=== PATIENT | male | born 1970 | race Caucasian/White ===

== ENCOUNTER → 2017-11-02 10:15 | Outpatient (CLI) | payer BC ==
[2014-10-22 12:45] VITALS: BMI 32.1
== END | disposition home or self-care (01) ==
LOC: D.MRI 10:15
DX: M50.123 Cervical disc disorder at C6-C7 level with radiculopathy (principal)

== ENCOUNTER → 2018-01-17 07:47 | Outpatient (CLI) | payer BC ==
[2014-10-22 12:45] VITALS: BMI 32.1
== END | disposition home or self-care (01) ==
LOC: D.MRI 07:47
DX: M54.12 Radiculopathy, cervical region (principal)

== ENCOUNTER 2018-02-11 10:51 | Day surgery (SDC) | payer BC ==
[~2018-02-11] VITALS: Ht 188 cm; Wt 111.4 kg
[2018-02-11] VITALS (7 sets, daily range): BP systolic 120–146; BP diastolic 75–87; BMI 32.8
--- NOTE | ~2018-02-11 | OP ---
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 PROCEDURE: Anterior cervical discectomy and fusion at C6-C7 with Zavation plate and screws, Qing bone allograft stem cells, PEEK interbody cage at C5-C6 and Mobi-C artificial cervical disc from [facility]. SURGEON: Radhames Alejandra MD PRIMARY CARE PHYSICIAN: Dr. Gutierrez in [place], [place]. DESCRIPTION OF TECHNIQUE: After induction of general endotracheal anesthesia, the patient was positioned supine on the operating table in a neutral position of the cervical spine. After sterile prep and drape, a transverse skin incision was carried out from the midline to the sternocleidomastoid at approximately the level of the C6 vertebral body. The platysma was divided with Bovie cautery. Then, using blunt and sharp dissection with Metzenbaum scissors, I proceeded in avascular plane medial to the carotid sheath. The C5-C6 and C6-C7 interspaces were confirmed with fluoroscopic x-ray and spinal needle. The C6-C7 interspace could not be visualized on lateral cervical spine; therefore, it was elected to perform a fusion at this level rather than the artificial cervical disc. After exposure of vertebral bodies of C6 and C7, the self-retaining retractor was placed deep to the longus colli muscles. Evergreen distracting pins were placed in the bodies of C6 and C7. Disk space was distracted and the disc space was incised with #11 blade. Series of pituitary rongeurs and curettes were used to remove disc material at C6-C7. Next, the posterior longitudinal ligament was removed with Cloward rongeurs and in the process of removing this, there was a disc material within the neural foraminal at C6-C7 on the left, which was removed as well as the central canal. Next, a PEEK interbody cage was placed into the disc space under distraction. Prior to this, it was filled with Qing Bone was bone stem cell allograft. Next, a Zavation anterior cervical plate and screws was used to span the C6-C7 interspace. Locking cams were tightened down the screw heads. Good position of the hardware was confirmed with fluoroscopic x-ray. Next, attention was turned to the C5-C6 interspace. Longus colli muscles were elevated from both the bodies of C5 and C6. Disk space was distracted using Evergreen distracting pins. The endplates were prepared with curettes and then the posterior longitudinal ligament was removed with Cloward rongeurs. There was additional disc material attached along the posterior longitudinal ligament, which was removed with curettes and upgoing curettes, which were posterior to the vertebral body. Following this, the dura was decompressed well and appropriate size Mobi-C artificial cervical disc was placed in the disc space under distraction. The Evergreen pins were relaxed and good position of the hardware was confirmed with AP and lateral fluoroscopic x-ray. Meticulous hemostasis was maintained throughout the wound. The wound was irrigated with copious amounts of Ancef irrigant solution. The platysma and subdermal layer closed with interrupted 3-0 Vicryl suture. The skin was OPERATIVE REPORT [id number] REED HUTSON reapproximated with Steri-Strips and benzoin. A sterile dressing was applied to the wound. The patient was awakened in good condition and taken to recovery. All counts were reported as correct. Estimated blood loss was minimal. TRANSINT:[id number] Voice Confirmation ID: [id number] DOCUMENT ID: [id number] RADHAMES ALEJANDRA MD at 0852 CC: [id number] DICTATION DATE: 02/15/18905 FARE ENFORCEMENT OFFICER: 02/15/18 1117 [facility] 02/12/18 [place] [id number] [place] [id number]
[2018-02-11] MEDS ORDERED: ZYRTEC10 MG PO (11:24)
[2018-02-11] MEDS ORDERED: STERAPRED 5MG 125 MG PO (11:25)
[2018-02-11] MEDS ORDERED: OXYCODONE-APAP1 TAB PO (11:25)
[2018-02-12] VITALS (9 sets, daily range): BP systolic 108–128; BP diastolic 67–82; Ht 188 cm; Wt 111.4 kg
== END 2018-02-12 11:30 | disposition home or self-care (01) ==
LOC: D.ICU 10:51 → D.OPS 10:51 → D.PAN 12:00 → D.OPS 12:00 → D.PAN 13:15 → D.OPS 13:15 → D.ICU 20:32 → D.OPS 02-12 11:30
DX: M50.123 Cervical disc disorder at C6-C7 level with radiculopathy (principal); Z01.812 Encounter for preprocedural laboratory examination

== ENCOUNTER → 2018-08-31 11:55 | Outpatient (CLI) | payer BC ==
[2018-02-12 14:14] VITALS: BMI 31.5
[~2018-08-31 11:55] MED LIST: OXYCODONE-APAP1 TAB PO; STERAPRED 5MG 125 MG PO; ZYRTEC10 MG PO
[2018-08-31 12:58] LABS: ALBUMIN 3.8 g/dL (3.4-5.0); ALKALINE PHOSPHATASE 60 U/L (46-116); ALT (SGPT) 34 U/L (10-68); BILIRUBIN - TOTAL 0.96 mg/dL (0.2-1.3); C-REACTIVE PROTEIN 1.1 mg/dL (0.0-0.9); CALC OSMOLALITY 279 mosm/kg (275-300); CALCIUM 9.1 mg/dL (8.5-10.1); CARBON DIOXIDE 27.4 mmol/L (21.0-32.0); CHLORIDE - SERUM 104 mmol/L (98-107); GLUCOSE 96 mg/dL (74-106); POTASSIUM - SERUM 4.1 mmol/L (3.5-5.1); PROTEIN - SERUM 6.6 g/dL (6.4-8.2); SODIUM 139 mmol/L (136-145); UREA NITROGEN 17 mg/dL (7-18); URIC ACID 5.9 mg/dL (2.6-7.2); eGFR NON AFRICAN AMERICAN 84 mL/min (90-120)
[2018-08-31 13:51] LABS: ERYTHROCYTE SEDIMENTATION RATE 2 mm/hr (0-20)
[2018-08-31 13:57] LABS: BASOPHILS 0.3 % (0-2); EOSINOPHILS 1.4 % (0-7); HEMATOCRIT 47.9 % (42.0-54.0); HEMOGLOBIN 16.9 g/dL (13.5-17.5); IMMATURE GRANULOCYTES 0.3 % (0-5); LYMPHOCYTES 20.1 % (15-50); MCH 31.6 pg (26.0-34.0); MCHC 35.3 g/dL (31.0-37.0); MCV 89.7 fL (80.0-100.0); MEAN PLATELET VOLUME 10.1 fL (7.4-10.4); MONOCYTES 7.6 % (2-11); NEUTROPHILS 70.3 % (40-80); PLATELET COUNT 287 10x3/uL (130-400); RBC 5.34 10x6/uL (4.20-6.10); RDW 13.4 % (11.5-14.5); WBC 7.1 10x3/uL (4.8-10.8)
[2018-09-02 16:08] LABS: ANA REFLEX - DIRECT Negative (Negative)
== END | disposition home or self-care (01) ==
LOC: D.LAB 11:55
PROVIDERS: ATTEND Orthopaedic Surgery
DX: M35.3 Polymyalgia rheumatica (principal)